=== PATIENT | male | born 1975 | race African-American/Black ===

== ENCOUNTER 2019-02-15 18:53 | Emergency (ER) | payer OTHER ==
[~2019-02-15] VITALS: Ht 175.3 cm; Wt 117.9 kg
[~2019-02-15 18:53] MED LIST: PREDNISONE 20 M20 MG PO; VENTOLIN HFA 1818 GM INH; VENTOLIN HFA INH8 GM IH
[2019-02-15] MEDS ORDERED: MICROZIDE12.5 MG PO (19:22)
[2019-02-15] MEDS ORDERED: PREVACID30 MG PO (19:22)
[2019-02-15] MEDS ORDERED: TRAMADOL 50 MG50 MG PO (19:34)
[2019-02-15] MEDS ORDERED: CLEOCIN HCL300 MG PO (19:34)
[2019-02-15 19:49] VITALS: BP 149/98
== END 2019-02-15 19:49 | disposition home or self-care (01) ==
LOC: M.ERS 18:53
DX: S00.261A Insect bite (nonvenomous) of right eyelid and periocular area, initial encounter (principal); Z88.8 Allergy status to other drugs, medicaments and biological substances; W57.XXXA Bitten or stung by nonvenomous insect and other nonvenomous arthropods, initial encounter; Y93.89 Activity, other specified; Y92.89 Other specified places as the place of occurrence of the external cause; Y99.8 Other external cause status

== ENCOUNTER 2019-06-24 20:53 | Emergency (ER) | payer OTHER ==
[~2019-06-24] VITALS: Ht 175.3 cm; Wt 117.9 kg
[~2019-06-24 20:53] MED LIST changes: +CLEOCIN HCL300 MG PO; +MICROZIDE12.5 MG PO; +PREVACID30 MG PO; +TRAMADOL 50 MG50 MG PO
[2019-06-24] MEDS ORDERED: CALCIUM500 MG PO (21:01)
[2019-06-24] MEDS ORDERED: AMOXICILLIN875 MG PO (21:57)
[2019-06-24] MEDS ORDERED: IBUPROFEN 800800 MG PO (21:58)
[2019-06-24 22:04] VITALS: BP 150/89
== END 2019-06-24 22:04 | disposition home or self-care (01) ==
LOC: M.ERS 20:53
DX: J32.9 Chronic sinusitis, unspecified (principal); Z91.048 Other nonmedicinal substance allergy status

== ENCOUNTER 2019-09-11 16:49 | Emergency (ER) | payer OTHER ==
[~2019-09-11] VITALS: Ht 175.3 cm; Wt 122.5 kg
[~2019-09-11 16:49] MED LIST changes: +AMOXICILLIN875 MG PO; +CALCIUM500 MG PO; +IBUPROFEN 800800 MG PO
[2019-09-11 17:01] LABS: URINE BILIRUBIN NEGATIVE (Negative); URINE BLOOD NEGATIVE (Negative); URINE CLARITY CLEAR; URINE COLOR YELLOW; URINE GLUCOSE-RANDOM NEGATIVE (Negative); URINE KETONES NEGATIVE (Negative); URINE LEUKOCYTES-REFLEX NEGATIVE (Negative); URINE NITRITE-REFLEX NEGATIVE (Negative); URINE PROTEIN NEGATIVE (Negative); URINE UROBILINOGEN 0.2 E.U./dl (0.2-1.0)
[2019-09-11 17:25] LABS: ABSOLUTE BASOPHILS 0.1 thou/uL (0.0-0.2); ABSOLUTE EOSINOPHILS 0.2 thou/uL (0.0-0.7); ABSOLUTE LYMPHOCYTES 1.7 thou/uL (0.8-5.3); ABSOLUTE MONOCYTES 0.3 thou/uL (0.0-1.2); BASOPHILS 1.1 %; EOSINOPHILS 3.5 %; HEMATOCRIT 44.6 % (42.0-52.0); HEMOGLOBIN 15.1 gm/dL (14.0-18.0); MCH 29.8 pg (26.0-34.0); MCHC 33.9 g/dL (28.0-37.0); MCV 87.9 fL (80.0-100.0); MONOCYTES 4.8 %; MPV 8.8 fl. (7.2-11.1); NUCLEATED RBCS 0 /100WBC; PLATELET COUNT* 206 thou/uL (150-400); POLYS 63.6 %; RBC 5.08 mil/uL (4.50-6.00); RDW-CV 15.6 % (10.5-14.5); WBC 6.2 thou/uL (4.0-11.0)
[2019-09-11 17:34] LABS: CALCIUM 8.5 mg/dL (8.5-10.1); CREATININE 1.8 mg/dL (0.6-1.3)
[2019-09-11 17:39] LABS: ALBUMIN 3.6 g/dL (3.4-5.0); TOTAL BILIRUBIN 0.4 mg/dL (<0.1-1.0); TOTAL PROTEIN 7.8 g/dL (6.4-8.2)
[2019-09-11] MEDS ORDERED: NORCO 5-325 TA1 EAC1 PO (18:46)
[2019-09-11 19:28] VITALS: BP 172/98
--- NOTE | 2019-09-12 17:04 | EKG ---
[place] [address] ELECTROCARDIOGRAM REPORT Name: MEG MARRERO Room: [facility]#: [id number] Admission: 09/11/19 Attend Phys: Discharge: 09/11/19 Date of : 75 Date of Service: 09/11/19 1718 Report #: [id number] THIS REPORT FOR: //name// [facility] ED Test Date: 2019-09-11 Test Time: 17:18:49 Pat Name: MEG MARRERO Department: Room: Gender: Dryer Operator: GRAZYNA : 1975 Requested By: Sunita Shaikh Order Number: [id number] MD: Pardeep López Measurements Intervals [place] Rate: 81 P: 60 AR: 158 QRS: 51 QRSD: 96 T: -5 QT: 357 QTc: 415 Interpretive Statements Sinus rhythm Borderline T abnormalities, inferior leads ST elev, probable normal early repol pattern Baseline wander in lead(s) V1 No previous ECG available for comparison Electronically Signed On 09-12-2019 17:02:18 CDT by Pardeep López [email or web address] <ELECTRONICALLY SIGNED> By: Pardeep López MD, FAC 09/12/19 1702 1718 1718 Pardeep López MD, [facility] /EPI
== END 2019-09-11 19:28 | disposition home or self-care (01) ==
LOC: M.ERS 16:49
PROVIDERS: Physician Assistant
DX: R10.11 Right upper quadrant pain (principal); R11.2 Nausea with vomiting, unspecified; Z88.8 Allergy status to other drugs, medicaments and biological substances

== ENCOUNTER 2020-01-25 14:53 | Emergency (ER) | payer OTHER ==
[~2020-01-25] VITALS: Ht 175.3 cm; Wt 99.8 kg
[~2020-01-25 14:53] MED LIST changes: +NORCO 5-325 TA1 EAC1 PO
[2020-01-25] MEDS ORDERED: OMEPRAZOLE40 MG PO (15:07)
[2020-01-25] MEDS ORDERED: PREDNISONE50 MG PO (16:23)
[2020-01-25] MEDS ORDERED: ZPAK PO (16:23)
[2020-01-25 16:37] VITALS: BP 149/78
== END 2020-01-25 16:37 | disposition home or self-care (01) ==
LOC: M.ERS 14:53
DX: J40 Bronchitis, not specified as acute or chronic (principal); K21.9 Gastro-esophageal reflux disease without esophagitis; I10 Essential (primary) hypertension; Z79.899 Other long term (current) drug therapy

== ENCOUNTER 2020-08-05 23:03 | Emergency (ER) | payer OTHER ==
[~2020-08-05] VITALS: Ht 177.8 cm; Wt 130.2 kg
[~2020-08-05 23:03] MED LIST changes: +OMEPRAZOLE40 MG PO; +PREDNISONE50 MG PO; +ZPAK PO
[2020-08-05] MEDS ORDERED: NEXIUM (23:10)
[2020-08-05 23:40] LABS: ABSOLUTE EOSINOPHILS 0.1 thou/uL (0.0-0.7); ABSOLUTE LYMPHOCYTES 2.3 thou/uL (0.8-5.3); ABSOLUTE MONOCYTES 0.5 thou/uL (0.0-1.2); ABSOLUTE NEUTROPHILS 4.2 thou/uL (1.6-8.1); BASOPHILS 0.6 %; HEMATOCRIT 47.3 % (42.0-52.0); HEMOGLOBIN 15.6 gm/dL (14.0-18.0); LYMPHOCYTES 32.3 %; MCH 28.9 pg (26.0-34.0); MCV 87.5 fL (80.0-100.0); MPV 8.7 fl. (7.2-11.1); NUCLEATED RBCS 0 /100WBC; PLATELET COUNT* 243 thou/uL (150-400); POLYS 58.1 %; RDW-CV 15.7 % (10.5-14.5); WBC 7.3 thou/uL (4.0-11.0)
[2020-08-05 23:44] LABS: ANION GAP 5 mmol/L (7-16); BUN 16 mg/dL (7-18); CALCIUM 8.6 mg/dL (8.5-10.1); CHLORIDE 103 mmol/L (98-107); CO2 33 mmol/L (21-32); CREATININE 1.7 mg/dL (0.6-1.3); GLUCOSE 112 mg/dL (70-99); SODIUM 141 mmol/L (136-145)
[2020-08-05 23:45] LABS: INR 1.1; PROTIME 11.2 Seconds (9.20-11.50)
[2020-08-05 23:57] LABS: ALKALINE PHOSPHATASE 91 U/L (46-116); LIPASE 93 U/L (73-393); NT-PRO BRAIN NAT PEPTIDE < 5 pg/mL (<300); SGOT 46 U/L (15-37); SGPT 78 U/L (30-65); TOTAL BILIRUBIN 0.6 mg/dL (<0.1-1.0); TOTAL PROTEIN 8.4 g/dL (6.4-8.2)
[2020-08-06] MEDS ORDERED: CARAFATE 1 GM TA1 GM PO (01:27)
[2020-08-06 01:35] VITALS: BP 136/83
--- NOTE | 2020-08-06 11:18 | EKG ---
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[facility] : 1975 Requested By: Carmen Stubbs Order Number: [id number] MD: Tim Davis Measurements Intervals [place] Rate: 84 P: 57 IN: 151 QRS: 27 QRSD: 85 T: -11 QT: 351 QTc: 415 Interpretive Statements Sinus rhythm Borderline T abnormalities, inferior leads ST elev, probable normal early repol pattern Baseline wander in lead(s) II,III,aVF Compared to ECG 09/11/2019 17:18:49 No significant changes Electronically Signed On 08-06-2020 11:18:22 CDT by Tim Davis [email or web address] <ELECTRONICALLY SIGNED> By: Tim Davis MD, FACC 08/06/20 1118 09 09 Tim Davis MD, FAC /EPI
== END 2020-08-06 01:36 | disposition home or self-care (01) ==
LOC: M.ERS 23:03
PROVIDERS: Emergency Medicine
DX: K21.9 Gastro-esophageal reflux disease without esophagitis (principal); R79.89 Other specified abnormal findings of blood chemistry; I10 Essential (primary) hypertension; Z88.8 Allergy status to other drugs, medicaments and biological substances